=== PATIENT | male | born 1990 | race Caucasian/White ===

== ENCOUNTER → 2017-02-24 | Outpatient (REF) ==
--- NOTE | 2017-02-25 01:43 | REP ---
Clinical: Pain and disability. Technique: AP, lateral, bilateral oblique and sunrise views of the right knee . Findings: The osseous structures and joint spaces are intact and normal. There is no evidence for acute fracture or dislocation. No joint effusion is appreciated. Surrounding soft tissues are unremarkable. No subcutaneous emphysema or radiodense foreign body. Impression: Normal examination. No obvious pathology by radiographic evaluation. If the patient remains symptomatic consider MRI for further investigation. Signed by Mario Franklin MD 02/25/2017 01:35 A
--- NOTE | 2017-02-25 02:51 | REP ---
Clinical: Pain and disability. Technique: AP, lateral, coned-down views of the lumbar spine. Findings: Three views of the lumbosacral spine demonstrate satisfactory alignment and lordosis without acute fracture / compression injury or subluxation. Minimal disc space narrowing at the L5-S1 level cannot be excluded. No further degenerative changes are appreciated by radiographic evaluation. Impression: Minimal disc space narrowing at L5-S1. No acute fracture / compression injury or subluxation. Signed by Mario Franklin MD 02/25/2017 02:42 A
== END ==
LOC: M SMT 10:27
PROVIDERS: ATTEND Internal Medicine
DX: Z02.89 Encounter for other administrative examinations (principal)